=== PATIENT | male | born 1970 ===

== ENCOUNTER 2023-07-10 10:03 | Day surgery (SDC) | payer OTHER ==
[2023-07-07 12:30] LABS: HEMATOCRIT 43.3 % (39.0-48.0); HEMOGLOBIN 14.9 g/dL (13-16.00); MEAN CELL VOLUME 87.7 fL (80.0-100.00); MEAN CORPUSCULAR HEMOGLOBIN 30.2 pg (27.00-32.0); MEAN CORPUSCULAR HGB CONC 34.5 g/dl (32.0-36.0); PLATELET COUNT 262 K/uL (150-450); RED BLOOD COUNT 4.94 M/uL (4.00-6.00); RED CELL DISTRIBUTION WIDTH 14.2 % (11.5-14.5)
[2023-07-07 12:31] LABS: URINE APPEARANCE Clear; URINE BILIRRUBIN Negative (NEGATIVE); URINE BLOOD Negative; URINE COLOR Yellow; URINE GLUCOSE Negative (NEGATIVE); URINE LEUKOCYTE Negative; URINE NITRATE Negative; URINE PROTEIN Negative (NEGATIVE)
[2023-07-07 12:32] LABS: URINE EPITHELIAL CELLS 4.1 uL (0.0-38.8); URINE RBC 3.1 uL (0.0-20.8); URINE WBC 3.2 uL (0.0-23.2)
[2023-07-07 12:49] LABS: INR 0.95; PARTIAL THROMBOPLASTIN TIME 28.2 SECONDS (22.0-34.0)
[2023-07-07 12:55] LABS: ALBUMIN 3.7 gm/dL (3.4-5.0); BILIRUBIN TOTAL 0.45 mg/dL (0.3-1.2); CALCIUM 9.2 mg/dL (8.5-10.1); CREATININE SERUM 0.69 mg/dL (0.70-1.30); GFR 119.94; GLOBULINA 3.2 G/DL (2.4-3.5); POTASSIUM 4.34 mEq/L (3.5-5.1); TOTAL PROTEIN 6.9 gm/dL (6.4-8.2)
[2023-07-07 13:37] LABS: URINE BACTERIA 3.7 uL (0.0-1933)
[~2023-07-10] VITALS: Ht 165.1 cm; Wt 81.2 kg
[2023-07-10] MEDS ORDERED: CEFAZOLIN SODIUM 1,000 MG VIAL ONE (10:51)
[2023-07-10] MEDS ORDERED: BUPIVACAINE HCL/PF 0.5% 30ML ML ONE (10:53)
[2023-07-10] MEDS ORDERED: BUPIVACAINE HCL/PF 0.5% 30ML ML IJ ONE (11:15)
[2023-07-10] MEDS ORDERED: CEFAZOLIN SODIUM 1,000 MG VIAL IV ONE (11:15)
[2023-07-10] MEDS ORDERED: TYLENOL ARTHRI650 MG PO (13:25)
[2023-07-10] MEDS ORDERED: KETO10TA2 PO (13:25)
[2023-07-10] MEDS ORDERED: TRAMADOL HCL50 MG PO (13:25)
[2023-07-10] MEDS ORDERED: MIRALAX17 GM PO (13:25)
== END 2023-07-10 15:30 | disposition home or self-care (01) ==
LOC: CIR.AMB 10:03
PROVIDERS: ATTEND Surgery
DX: K40.90 Unilateral inguinal hernia, without obstruction or gangrene, not specified as recurrent (principal); I10 Essential (primary) hypertension
CPT/HCPCS: 49650; C1781